=== PATIENT | female | born 1980 | race Caucasian/White ===

== ENCOUNTER → 2016-09-06 | Outpatient (CLI) | payer OTHER ==
[~2016-09-06] MED LIST: CIPR250T2 PO; FLON0.053; PERC5TAB12 PO; Z.0.BCPILL PO
[2016-09-06 15:54] LABS: AUTOMATED NEUTROPHIL # 4.9 TH/MM3 (1.8-7.7); BASOPHIL % 0.3 % (0.0-2.0); EOSINOPHIL # 0.3 TH/MM3 (0-0.4); EOSINOPHIL % 3.6 % (0.0-4.0); HEMO FLAGS DIFF FINAL; LYMPH % 24.7 % (9.0-44.0); MEAN CELL VOLUME 91.5 FL (80.0-100.0); MEAN CORPUSCULAR HEMOGLOBIN 30.2 PG (27.0-34.0); MONO % 11.2 % (0.0-8.0); NEUT % 60.2 % (16.0-70.0); PLATELET COUNT 240 TH/MM3 (150-450); RED BLOOD COUNT 4.37 MIL/MM3 (4.00-5.30); RED CELL DISTRIBUTION WIDTH 12.7 % (11.6-17.2); WHITE BLOOD COUNT 8.2 TH/MM3 (4.0-11.0)
[2016-09-06 15:56] LABS: BLOOD, URINE NEG (NEG); COMMENT (UR) CULT NOT INDICATED; CULTURE IF INDICATED CULT NOT INDICATED; GLUCOSE,URINE NEG (NEG); KETONE, URINE NEG (NEG); NITRITE,URINE NEG (NEG); SQUAMOUS EPITHELIAL CELL URINE <1 /hpf (0-5); URINE COLOR COLORLESS (YELLW/STRAW)
--- NOTE | 2016-09-07 09:34 | EKG ---
Date Performed: 09/06/2016 Time Performed: 15:23:07 PTAGE: 35 years EKG: Sinus rhythm WITH OCCASIONAL VENTRICULAR PREMATURE COMPLEXES POSSIBLE LEFT ATRIAL ENLARGEMENT POSSIBLE RIGHT VENT RICULAR CONDUCTION DELAY BORDERLINE ECG NO PREVIOUS TRACING DOCTOR: Joshua Rivas Interpretating Date/Time 09/07/2016 09:32:19
== END ==
LOC: CPRE 15:03
PROVIDERS: ATTEND Obstetrics & Gynecology
DX: Z01.810 Encounter for preprocedural cardiovascular examination (principal); Z01.812 Encounter for preprocedural laboratory examination; N83.01 Follicular cyst of right ovary; R10.2 Pelvic and perineal pain; R94.31 Abnormal electrocardiogram [ECG] [EKG]
CPT/HCPCS: 36415; 81001; 85025; 93005

== ENCOUNTER → 2016-09-08 | Day surgery (SDC) | payer OTHER ==
[~2016-09-08] VITALS: Ht 162.6 cm; Wt 55.7 kg
[~2016-09-08] MED LIST changes: +ACETAMINOPHEN 1000 MG/100 ML VIAL IV ONE; +ACETAMINOPHEN 1000 MG/100 ML VIAL IV SCH; +APREPITANT 40 MG CAP ONE; +BUPIVACAINE/EPINEPHRINE 0.5% PF 30 ML VIAL ONE; +CHLORHEXIDINE GLUCONATE 2 % 1 PACK (2 CLOTHS) TOPICAL PRN; -CIPR250T2 PO; +DEXAMETHASONE SOD PHOS 4 MG/ML VIAL ONE; +DO NOT ADM ANY ANTICOAGULANT DRUGS PRN; -FLON0.053; +INSULIN HUMAN REGULAR 1,000 UNITS/10 ML VIAL SQ PRN; +KETOROLAC TROMETHAMINE 60 MG/2 ML (IM) VIAL IM ONE; +LACTATED RINGER'S 1000 ML IV PRN; +METOCLOPRAMIDE HCL 10 MG/2 ML VIAL IV PRN; +METOPROLOL TARTRATE 25 MG TAB PO PRN; +MIDAZOLAM HCL 2 MG/2 ML VIAL ONE; +NEOSTIGMINE 3 MG/3 ML SYR IV ONE; +ONDANSETRON HCL 4 MG/2 ML VIAL IV PUSH ONE; +ONDANSETRON HCL 4 MG/2 ML VIAL ONE; -PERC5TAB12 PO; +POVIDONE IODINE 5% (ANTISEPSIS KIT) 4 APPLICATIONS EACH NARE PRN; +PROPOFOL 200 MG/20 ML AMP IV ONE; +SODIUM CHLORID 0.9% 500 ML IV PRN; +SUGAMMADEX SODIUM 200 MG/2 ML VIAL IV PUSH ONE; -Z.0.BCPILL PO; +ceFAZolin 1,000 MG/NS 100 ML IV SCH; +ePHEDrine/NS 25 MG/5 ML SYR IV ONE; +fentaNYL CITRATE 250 MCG/5 ML AMP ONE; +oxyCODONE/ACETAMINOPHEN 5 MG/325 MG TAB PO PRN
[2016-09-08 05:47] VITALS: BP 139/84; PULSE 80; RESP 20; TEMP 99; O2SAT 100
--- NOTE | 2016-09-08 06:40 | MH ---
cc: YESSENIA GALVAN DATE OF ADMISSION: 09/08/2016 ADMISSION DIAGNOSIS Pelvic pain with bilateral ovarian cysts. HISTORY OF PRESENT ILLNESS The patient is a 35-year-old, , white female para 2-0-2-2, with increasing pelvic pain and persistent enlarging ovarian cysts with intermittent pelvic pain over the last [address] scan from June 2016 some showed bilateral cysts seen on initial ultrasound on 06/22/2016. CT scan the next day showed the remainder of the abdomen is benign. Because of persistent pain, a followup scan was done on 07/14/2016 that showed bilateral cysts and these have persistent on the ultrasound from 08/02/2016. PAST MEDICAL HISTORY Previous surgery: 1. Tonsillectomy and adenoidectomy back in 1985. 2. Abdomenoplasty in 2005. 3. 2013 she had LASH for adenomyosis. MEDICATIONS Vitamins. ALLERGIES None. TRANSFUSIONS None. SOCIAL HISTORY She is a schoolteacher. She is . Alcohol, tobacco and drugs are none. FAMILY HISTORY Noncontributory. PHYSICAL EXAMINATION GENERAL: This is a well-nourished, well-developed white female. VITAL SIGNS: Stable. HEENT: Exam is normal. CHEST: Clear. HEART: Regular rate. BREASTS: The breasts are symmetrical. ABDOMEN: Benign. PELVIC: Exam normal external genitalia and Bartholin's, urethral, and Bowlus's. Vagina is normal. Cervix normal. Adnexa are cystic and tender. ASSESSMENT As above. PLAN She is now admitted for laparoscopy with planned BSO. She has been perimenopausal. She is aware after the surgery she will be menopausal and will need estrogen replacement therapy. She would like to proceed. MD CARLITO Moya/MILAN /8:57 PM /6:39 AM NORAH
[2016-09-08 09:30] VITALS: BP 90/54; PULSE 71; RESP 20; TEMP 97.7; O2SAT 95
--- NOTE | 2016-09-12 10:29 | MP ---
cc: YESSENIA GALVAN. DATE OF SURGERY 09/08/2016 PREOPERATIVE DIAGNOSIS Pelvic pain, ovarian cyst. POSTOPERATIVE DIAGNOSIS Pelvic pain, ovarian cyst, stage I endometriosis. PROCEDURE Laparoscopic BSO and coagulation endometriosis. ANESTHESIA ET. SURGEON Yessenia Galvan MD ANALYSIS ANALYST Tarah Benavides ESTIMATED BLOOD LOSS Less than 20 cc. FLUIDS 800 cc crystalloid. OBJECTIVE FINDINGS Following induction of adequate general endotracheal anesthesia the patient was prepped and draped supine on the operating table, supine with the bladder being drained by Senior catheterization. The abdomen entered through a 1/2 cm umbilical incision, a 5 port was placed followed by a laparoscope attached to cam. A 12 port was placed in the left upper quadrant and a 5 in the right. On the left side the ovary was cystic, about 3 cm. It was taken with harmonic scalpel, extracted through a pouch. On the right side some omental adhesions were lysed to expose the ovary which was cystic about 3, 4 cm. The harmonic scalpel was used take the ovary, also extracted through the pouch. Endometriosis implants on the bladder were coagulated with the harmonic scalpel. The pelvic anatomy was normal. The operative sites were coated with aristra. Low pressure test was done, there was no bleeding. The large port was removed and the fascia sutured with 2-0 Vicryl and skin with a running subcuticular 3-0 Monocryl. The scope was in place to ensure no entrapment of viscera. The scope was now withdrawn, gas allowed to escape and the small wounds closed with 3-0 Monocryl. Each site had been injected with Marcaine 0.5%, 2-3 cc. After procedure all counts correct. The patient was awakened and taken to the recovery room in good condition. Yessenia Galvan MD JAW/EO /7:54 AM /10:23 AM NORAH
== END | disposition home or self-care (01) ==
LOC: HSDC 05:23
PROVIDERS: ATTEND Obstetrics & Gynecology
DX: N83.01 Follicular cyst of right ovary (principal); N83.02 Follicular cyst of left ovary; N80.9 Endometriosis, unspecified; N83.8 Other noninflammatory disorders of ovary, fallopian tube and broad ligament; N73.6 Female pelvic peritoneal adhesions (postinfective); Z88.5 Allergy status to narcotic agent
CPT/HCPCS: 58661; 88305; J0131; J0690; J1100; J1885; J2250; J2405; J2710; J3010; J7120; J8501

== ENCOUNTER 2017-04-23 05:04 | Emergency (ER) | payer OTHER ==
[~2017-04-23] VITALS: Ht 162.6 cm; Wt 58.0 kg
[2017-04-23 05:07] VITALS: BP 124/70; PULSE 107; RESP 16; TEMP 99.7; O2SAT 98
[2017-04-23] MEDS ORDERED: SODIUM CHLOR 0.9% 1000 ML INJ 1,000 ML IV SCH (05:39)
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
[2017-04-23] MEDS ORDERED: HYDROmorphone HCL PF 1 MG/ML VIAL IV PUSH ONE ×2 (05:45→07:30)
[2017-04-23] MEDS ORDERED: SODIUM CHLORIDE 0.9% FLUSH 10 ML FLUSH IV FLUSH PRN (05:45)
[2017-04-23] MEDS ORDERED: ONDANSETRON HCL 4 MG/2 ML VIAL IVP ONE (05:45)
[2017-04-23] MEDS ORDERED: PANT20TA2 PO (05:59)
[2017-04-23] MEDS ORDERED: ESTR1 PO (05:59)
[2017-04-23] MEDS ORDERED: EEMTTAB2 (05:59)
[2017-04-23 06:12] LABS: AUTOMATED NEUTROPHIL # 10.6 TH/MM3 (1.8-7.7); BASOPHIL % 0.3 % (0.0-2.0); EOSINOPHIL # 0.3 TH/MM3 (0-0.4); EOSINOPHIL % 2.5 % (0.0-4.0); HEMATOCRIT 37.5 % (35.0-46.0); HEMOGLOBIN 12.6 GM/DL (11.6-15.3); LYMPH % 10.7 % (9.0-44.0); LYMPHOCYTE # 1.4 TH/MM3 (1.0-4.8); MEAN CELL VOLUME 92.2 FL (80.0-100.0); MEAN CORPUSCULAR HGB CONC 33.6 % (32.0-36.0); MEAN PLATELET VOLUME 8.8 FL (7.0-11.0); MONO % 8.9 % (0.0-8.0); MONOCYTE # 1.2 TH/MM3 (0-0.9); NEUT % 77.6 % (16.0-70.0); PLATELET COUNT 264 TH/MM3 (150-450); RED BLOOD COUNT 4.07 MIL/MM3 (4.00-5.30); WHITE BLOOD COUNT 13.6 TH/MM3 (4.0-11.0)
[2017-04-23 06:20] LABS: ALBUMIN 3.6 GM/DL (3.4-5.0); ALT (GPT) 11 U/L (10-53); AST (GOT) 12 U/L (15-37); BICARBONATE 23.7 MEQ/L (21.0-32.0); BLOOD UREA NITROGEN 6 MG/DL (7-18); CALCIUM 8.4 MG/DL (8.5-10.1); CHLORIDE 104 MEQ/L (98-107); CREATININE 0.54 MG/DL (0.50-1.00); GLOMERULAR FILTRATION RATE 126 ML/MIN (>89); GLUCOSE,RANDOM 86 MG/DL (74-106); LIPASE 75 U/L (73-393); SODIUM (NA) 138 MEQ/L (136-145)
[2017-04-23 06:23] LABS: ALKALINE PHOSPHATASE 69 U/L (45-117); TOTAL BILIRUBIN ADULT 1.6 MG/DL (0.2-1.0); TOTAL PROTEIN 7.5 GM/DL (6.4-8.2)
[2017-04-23 06:30] VITALS: PULSE 96; RESP 16; O2SAT 100
[2017-04-23 07:18] LABS: BILIRUBIN, URINE NEG (NEG); BLOOD, URINE SMALL (NEG); GLUCOSE,URINE NEG (NEG); KETONE, URINE 150 mg/dL (NEG); MUCUS URINE FEW /lpf (OCC); NITRITE,URINE NEG (NEG); SQUAMOUS EPITHELIAL CELL URINE 5 /hpf (0-5); URINE COLOR YELLOW (YELLW/STRAW); URINE LEUKOCYTE ESTERASE TRACE (NEG)
[2017-04-23 07:25] VITALS: BP 121/68; PULSE 101; RESP 16; O2SAT 100
[2017-04-23] MEDS ORDERED: IOHEXOL 350 MG/ML 10 ML VIAL (for RAD DIAG) IVCONTRAST ONE (07:32)
--- NOTE | 2017-04-23 07:48 | RADRPT ---
EXAM DATE/TIME: 04/23/2017 07:18 [facility] COMPARISON: No previous studies available for comparison. INDICATIONS : Abdominal pain, back pain left leg pain. IV CONTRAST: 100 cc Omnipaque 350 (iohexol) IV ORAL CONTRAST: No oral contrast ingested. RADIATION DOSE: 5.42 CTDIvol (mGy) MEDICAL HISTORY : None SURGICAL HISTORY : Oophrectomy. ENCOUNTER: Initial ACUITY: 3 days PAIN SCALE: 7/10 LOCATION: Left abdominal TECHNIQUE: Volumetric scanning of the abdomen and pelvis was performed. Using automated exposure control and ad justment of the mA and/or kV according to patient size, radiation dose was kept as low as reasonably achievable to obtain optimal diagnostic quality images. DICOM format image data is available electro nically for review and comparison. FINDINGS: LOWER LUNGS: The visualized lower lungs are clear. LIVER: Homogeneous density without lesion. There is no dilation of the biliary tree. No calcified gallston es. SPLEEN: Normal size without lesion. PANCREAS: Within normal limits. KIDNEYS: Normal in size and shape. There is no mass, stone or hydronephrosis. ADRENAL GLANDS: Within normal limits. VASCULAR: There is no aortic aneurysm. BOWEL/MESENTERY: Marked inflammatory changes with hazy/stranding opacity surrounding the mid to distal descending colo n. Circumferential wall thickening of the colon measures approximately 10 cm in length. There is a po ssible small early 1.5 cm abscess in the lateral posterior wall of the colon in this region. No evide nce of bowel dilatation. Appendix within normal limits. No free air or free fluid. ABDOMINAL WALL: Within normal limits. RETROPERITONEUM: There is no lymphadenopathy. BLADDER: No wall thickening or mass. REPRODUCTIVE: 2.8 x 1.6 cm bilobed cystic area in the right adnexa. INGUINAL: There is no lymphadenopathy or hernia. MUSCULOSKELETAL: Within normal limits for patient age. CONCLUSION: 1. Focal severe inflammatory process of the mid to distal descending colon. Differential diagnosis is diverticulitis versus focal colitis. Possible early abscess formation in the posterior lateral wall measuring 1.5 cm. No free air. A defined drainable abscess is not seen. 2. 2.8 symmetr bilobed cyst in the right adnexal region. Mikie Carbone MD on April 23, 2017 at 7:33 Board Certified Radiologist. This report was verified electronically.
--- NOTE | 2017-04-23 08:11 | PD ---
Data Data Last Documented VS Vital Signs Date Time Temp Pulse Resp B/P (MAP) Pulse Ox O2 Delivery O2 Flow Rate FiO2 04/23/17 07:25 101 16 121/68 (85) 100 Room Air 04/23/17 05:07 99.7 Orders Orders Complete Blood Count With Diff (04/23/17 05:39) Comprehensive Metabolic Panel (04/23/17 05:39) Lipase (04/23/17 05:39) Urinalysis - C+S If Indicated (04/23/17 05:39) Ct Abd/Pel W Iv Contrast(Rout) (04/23/17 05:39) Iv Access Insert/Monitor (04/23/17 05:39) Ecg Monitoring (04/23/17 05:39) Oximetry (04/23/17 05:39) Ondansetron Inj (Zofran Inj) (04/23/17 05:45) Sodium Chlor 0.9% 1000 Ml Inj (Ns 1000 M (04/23/17 05:39) Sodium Chloride 0.9% Flush (Ns Flush) (04/23/17 05:45) Electrocardiogram (04/23/17 05:39) Hydromorphone Pf Inj (Dilaudid Pf Inj) (04/23/17 05:45) Hydromorphone Pf Inj (Dilaudid Pf Inj) (04/23/17 07:30) Iohexol 350 Inj (Omnipaque 350 Inj) (04/23/17 07:32) Ciprofloxacin 400 Mg Premix (Cipro 400 M (04/23/17 08:30) Metronidazole 500 Mg Inj (Flagyl 500 Mg (04/23/17 08:30) Ed Discharge Order (04/23/17 08:50) Labs Laboratory Tests Test 04/23/17 05:40 04/23/17 07:00 White Blood Count 13.6 TH/MM3 Red Blood Count 4.07 MIL/MM3 Hemoglobin 12.6 GM/DL Hematocrit 37.5 % Mean Corpuscular Volume 92.2 FL Mean Corpuscular Hemoglobin 31.0 PG Mean Corpuscular Hemoglobin Concent 33.6 % Red Cell Distribution Width 13.0 % Platelet Count 264 TH/MM3 Mean Platelet Volume 8.8 FL Neutrophils (%) (Auto) 77.6 % Lymphocytes (%) (Auto) 10.7 % Monocytes (%) (Auto) 8.9 % Eosinophils (%) (Auto) 2.5 % Basophils (%) (Auto) 0.3 % Neutrophils # (Auto) 10.6 TH/MM3 Lymphocytes # (Auto) 1.4 TH/MM3 Monocytes # (Auto) 1.2 TH/MM3 Eosinophils # (Auto) 0.3 TH/MM3 Basophils # (Auto) 0.0 TH/MM3 CBC Comment DIFF FINAL Differential Comment Blood Urea Nitrogen 6 MG/DL Creatinine 0.54 MG/DL Random Glucose 86 MG/DL Total Protein 7.5 GM/DL Albumin 3.6 GM/DL Calcium Level 8.4 MG/DL Alkaline Phosphatase 69 U/L Aspartate Amino Transf (AST/SGOT) 12 U/L Alanine Aminotransferase (ALT/SGPT) 11 U/L Total Bilirubin 1.6 MG/DL Sodium Level 138 MEQ/L Potassium Level 3.6 MEQ/L Chloride Level 104 MEQ/L Carbon Dioxide Level 23.7 MEQ/L Anion Gap 10 MEQ/L Estimat Glomerular Filtration Rate 126 ML/MIN Lipase 75 U/L Urine Color YELLOW Urine Turbidity HAZY Urine pH 6.0 Urine Specific [place] 1.019 Urine Protein TRACE mg/dL Urine Glucose (UA) NEG mg/dL Urine Ketones 150 mg/dL Urine Occult Blood SMALL Urine Nitrite NEG Urine Bilirubin NEG Urine Urobilinogen LESS THAN 2.0 MG/DL Urine Leukocyte Esterase TRACE Urine RBC 13 /hpf Urine WBC 3 /hpf Urine Squamous Epithelial Cells 5 /hpf Urine Mucus FEW /lpf Microscopic Urinalysis Comment CULT NOT INDICATED MDM Medical Record Reviewed: Yes Supervised Visit with ALEXANDER: No Narrative Course Please refer to Dr. Tinoco's note. The patient has diverticulitis with possible very small abscess. The abdomen is tender however not peritoneal. There is no rebound. The patient is ambulatory however reports some pain with ambulation. The patient is quite well in appearance overall and otherwise very healthy. No fever. Pt tolerating oral hydration. We'll send home with PO abx and strict return precautions which were discussed in detail with at bedside including follow-up with Dr. Gordon tomorrow morning without fail and a prompt return to the ER immediately for any worsening of symptoms especially within the next 8 hours. CBC & BMP Diagram 04/23/17 05:40 Total Protein 7.5, Albumin 3.6, Calcium Level 8.4 L, Alkaline Phosphatase 69, Aspartate Amino Transf (AST/SGOT) 12 L, Alanine Aminotransferase (ALT/SGPT) 11, Total Bilirubin 1.6 H Last 24 hours Impressions Abdomen/Pelvis CT 04/23/17 0539 Signed Impressions: Service Date/Time: Sunday, April 23, 2017 07:18 - CONCLUSION: 1. Focal severe inflammatory process of the mid to distal descending colon. Differential diagnosis is diverticulitis versus focal colitis. Possible early abscess formation in the posterior lateral wall measuring 1.5 cm. No free air. A defined drainable abscess is not seen. 2. 2.8 symmetr bilobed cyst in the right adnexal region. Mikie Carbone MD Diagnosis Primary Impression: Abdominal pain Qualified Codes: R10.32 - Left lower quadrant pain Referrals: Matias Gordon MD PhD 1 day Additional Instruction: RETURN TO ER IMMEDIATELY IF PAIN WORSENS, FEVER DEVELOPS Med/Other Pt SpecificInfo: Prescription(s) given, No Change to Meds Scripts Oxycodone-Acetaminophen (Percocet) 7.5-325 mg Tab 1 TAB PO BID Y for PAIN SCALE 6 TO 10, #7 TAB 0 Refills Prov: Suman Damon MD 04/23/17 Metronidazole (Flagyl) 500 Mg Tab 500 MG PO TID for Infection for 14 Days, TAB 0 Refills Prov: Suman Damon MD 04/23/17 Ciprofloxacin (Cipro) 500 Mg Tab 500 MG PO BID for Infection for 14 Days, #28 TAB 0 Refills Prov: Suman Damon MD 04/23/17 Disposition: 01 DISCHARGE HOME Condition: Stable Suman Damon MD Apr 23, 2017 08:11
[2017-04-23] MEDS ORDERED: CIPR-9 PO (08:27)
[2017-04-23] MEDS ORDERED: METR-1 PO (08:27)
[2017-04-23] MEDS ORDERED: PERC7.5T13 PO (08:27)
[2017-04-23] MEDS ORDERED: CIPROFLOXACIN 400 MG PREMIX 200 ML IV ONE (08:30)
[2017-04-23] MEDS ORDERED: metroNIDAZOLE 500 MG INJ 100 ML IV ONE (08:30)
[2017-04-23 10:00] VITALS: BP 124/68; PULSE 98; RESP 18; O2SAT 98
--- NOTE | 2017-04-24 08:18 | EKG ---
Date Performed: 04/23/2017 Time Performed: 06:26:33 PTAGE: 36 years EKG: Sinus rhythm INCOMPLETE RIGHT BUNDLE BRANCH BLOCK NONSPECIFIC T-WAVE ABNORMALITY There is a slight increase in th e ST-T abnormality from the old tracing BORDERLINE ECG PREVIOUS TRACING : 09/06/2016 15.23 DOCTOR: Juni Bonilla Interpretating Date/Time 04/24/2017 08:16:24
== END 2017-04-23 11:05 | disposition home or self-care (01) ==
LOC: NEPC 05:04
DX: K57.92 Diverticulitis of intestine, part unspecified, without perforation or abscess without bleeding (principal); N83.201 Unspecified ovarian cyst, right side; I45.10 Unspecified right bundle-branch block; R94.31 Abnormal electrocardiogram [ECG] [EKG]; K21.9 Gastro-esophageal reflux disease without esophagitis; M79.7 Fibromyalgia; Z79.899 Other long term (current) drug therapy; Z88.5 Allergy status to narcotic agent; Z87.19 Personal history of other diseases of the digestive system
CPT/HCPCS: 74177; 80053; 81001; 83690; 85025; 93005; 96361; 96365; 96375; 96376; 99285; J0744; J1170; J2405; J7030; Q9967

== ENCOUNTER 2017-07-25 07:53 | Emergency (ER) | payer OTHER ==
[~2017-07-25] VITALS: Ht 162.6 cm; Wt 57.0 kg
[~2017-07-25 07:53] MED LIST changes: -ACETAMINOPHEN 1000 MG/100 ML VIAL IV ONE; -ACETAMINOPHEN 1000 MG/100 ML VIAL IV SCH; -APREPITANT 40 MG CAP ONE; -BUPIVACAINE/EPINEPHRINE 0.5% PF 30 ML VIAL ONE; -CHLORHEXIDINE GLUCONATE 2 % 1 PACK (2 CLOTHS) TOPICAL PRN; +CIPR-9 PO; -DEXAMETHASONE SOD PHOS 4 MG/ML VIAL ONE; -DO NOT ADM ANY ANTICOAGULANT DRUGS PRN; +EEMTTAB2; +ESTR1 PO; -INSULIN HUMAN REGULAR 1,000 UNITS/10 ML VIAL SQ PRN; -KETOROLAC TROMETHAMINE 60 MG/2 ML (IM) VIAL IM ONE; -LACTATED RINGER'S 1000 ML IV PRN; -METOCLOPRAMIDE HCL 10 MG/2 ML VIAL IV PRN; -METOPROLOL TARTRATE 25 MG TAB PO PRN; +METR-1 PO; -MIDAZOLAM HCL 2 MG/2 ML VIAL ONE; -NEOSTIGMINE 3 MG/3 ML SYR IV ONE; -ONDANSETRON HCL 4 MG/2 ML VIAL IV PUSH ONE; -ONDANSETRON HCL 4 MG/2 ML VIAL ONE; +PANT20TA2 PO; +PERC7.5T13 PO; -POVIDONE IODINE 5% (ANTISEPSIS KIT) 4 APPLICATIONS EACH NARE PRN; -PROPOFOL 200 MG/20 ML AMP IV ONE; -SODIUM CHLORID 0.9% 500 ML IV PRN; -SUGAMMADEX SODIUM 200 MG/2 ML VIAL IV PUSH ONE; -ceFAZolin 1,000 MG/NS 100 ML IV SCH; -ePHEDrine/NS 25 MG/5 ML SYR IV ONE; -fentaNYL CITRATE 250 MCG/5 ML AMP ONE; -oxyCODONE/ACETAMINOPHEN 5 MG/325 MG TAB PO PRN
[2017-07-25 08:00] VITALS: BP 131/74; PULSE 73; RESP 15; TEMP 97.3; O2SAT 98
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
[2017-07-25] MEDS ORDERED: CYCL10TA PO (09:45)
[2017-07-25 10:27] VITALS: BP 133/73
== END 2017-07-25 10:29 | disposition home or self-care (01) ==
LOC: NEPC 07:53
DX: S96.912A Strain of unspecified muscle and tendon at ankle and foot level, left foot, initial encounter (principal); V43.52XA Car driver injured in collision with other type car in traffic accident, initial encounter
CPT/HCPCS: 73630; 99283